=== PATIENT | female | born 1960 | race Caucasian/White ===

== ENCOUNTER 2016-03-01 12:21 | Emergency (ER) | payer BC ==
[~2016-03-01] VITALS: Ht 165.1 cm; Wt 90.3 kg
[2016-03-01] MEDS ORDERED: NORCO 7.5-3251 EACH PO (12:40)
[2016-03-01] MEDS ORDERED: CYMBALTA60 MG PO (12:40)
[2016-03-01] MEDS ORDERED: TOPROL XL25 MG PO (12:41)
[2016-03-01 12:57] LABS: BILIRUBIN NEGATIVE (NEGATIVE); BLOOD 1+ (NEGATIVE); CLARITY CLEAR (CLEAR); COLOR YELLOW (YELLOW); GLUCOSE NEGATIVE (NEGATIVE); KETONE NEGATIVE (NEGATIVE); LEUKO ESTERASE NEGATIVE (NEGATIVE); NITRITE NEGATIVE (NEGATIVE); PH 6.5 (5.0-9.0); PROTEIN NEGATIVE (NEGATIVE); UROBILINOGEN 0.2 E.U./dl (0.2-1.0)
[2016-03-01 13:22] LABS: BACTERIA 1+; EPITHELIAL CELLS 0-2; MUCOUS 2+; URINE REFLEX COMMENT YES (NO)
[2016-03-01] MEDS ORDERED: FLOMAX0.4 MG PO (15:19)
[2016-03-01] MEDS ORDERED: ZOFRAN ODT4 MG SL (15:19)
== END 2016-03-01 15:22 | disposition home or self-care (01) ==
LOC: ED 12:21
PROVIDERS: Registered Nurse
DX: N13.30 Unspecified hydronephrosis (principal); N20.0 Calculus of kidney; Z88.0 Allergy status to penicillin